=== PATIENT | male | born 1940 | race Caucasian/White ===

== ENCOUNTER → 2019-04-06 | Outpatient (CLI) | payer MEDICARE, OTHER | LOC: LAB.O 11:20 | PROVIDERS: ATTEND Urology | DX: R97.20 Elevated prostate specific antigen [PSA] (principal) ==

== ENCOUNTER → 2020-04-03 | Outpatient (CLI) | payer MEDICARE, OTHER ==
--- NOTE | 2020-04-04 15:26 | MRI ---
EXAM DESCRIPTION: Lumbar Spine w/o Contrast : Magnetic Resonance Imaging. CLINICAL HISTORY: RADICULOPATHY LUMBAR REGION COMPARISON: MRI scan of the pelvis without contrast on the same visit. TECHNIQUE: Multiplanar, multiple standard sequences, non contrast MRI, lumbar spine. FINDINGS: L5-S1: The disc is well visualized on axial T2 series 501, image 3. L5-S1: Moderate endplate reactive changes bilaterally. Moderate disc space loss with disc desiccation. Posterior right paracentral 5 mm disc protrusion with right subarticular recess stenosis, encroaching on the descending right S1 nerve.. Hypertrophic changes in the posterior flavum ligaments and facet joints (canal elements). AP canal diameter 10 mm. Disc osteophyte complex encroaching on the right foramen and the right L5 nerve with stenosis. Similar process at the left foramen with stenosis. L4-L5: Disc desiccation with disc space maintained. Posterior midline 6 mm protrusion impressing the thecal sac. The bilateral subarticular recess narrowing more on the right. Hypertrophic changes in the canal elements. AP canal diameter 5 mm. Borderline left foraminal stenosis and moderate right foraminal narrowing. Schmorl's node inferior L4 endplate. Hyperintense T1 and T2 hemangioma L4 vertebral body. L3-L4: Disc desiccation with disc space maintained. Minimal anterior bulging. Hypertrophic changes in the canal elements. AP canal diameter 11 mm. Bilateral mild to moderate foraminal narrowing. L2-L3: Disc desiccation and minimal anterior endplate reactive changes. Disc space preserved. Hypertrophic changes in the canal elements. AP canal diameter 11 mm. Bilateral mild foraminal narrowing. L1-L2: Disc desiccation. Anterior endplate reactive changes. Anterior disc bulge and spurs to the right of midline. Tiny posterior bulge. Hypertrophic changes in the canal elements. AP canal diameter 10 mm. Bilateral moderate foraminal narrowing. T12-L1: Normal signal in the disc with disc space preserved. No bulging. Hypertrophic changes in the canal elements. Canal patent with mild narrowing of the bilateral foramina. Conus terminates at L1. No scoliosis. Paravertebral soft tissues with minimal muscle atrophy.. Distal cord normal signal and caliber. Inhomogeneous marrow signal in the remaining vertebral bodies and the posterior elements. Vertebral bodies are not compressed at any level. IMPRESSION: 1. Multiple levels of hypertrophic changes in the flavum ligaments and facet joints, minimal endplate spondylosis at several levels with desiccated discs at multiple levels. 2. right posterior protrusion of the L5-S1 disc encroaching on the thecal sac with right subarticular recess stenosis and encroachment on the right S1 nerve. Borderline mild central canal stenosis. Bilateral foraminal stenosis with possible encroachment on the bilateral L5 nerves. 3. Posterior L4-L5 disc midline protrusion with marked hypertrophic changes in the ligaments and facet joints resulting in severe central canal stenosis. Subarticular recess narrowing and possible encroachment on the bilateral descending L5 nerves. 4. Please see above FINDINGS for discussion of results at other disc space levels. Electronically signed by: Candelario Harvey MD 04/04/2020 3:23 PM CDT
== END ==
LOC: MRI 13:00
PROVIDERS: ATTEND Nurse Practitioner Family
DX: M51.15 Intervertebral disc disorders with radiculopathy, thoracolumbar region (principal); M48.07 Spinal stenosis, lumbosacral region; M48.061 Spinal stenosis, lumbar region without neurogenic claudication; M46.96 Unspecified inflammatory spondylopathy, lumbar region; M24.28 Disorder of ligament, vertebrae; R93.7 Abnormal findings on diagnostic imaging of other parts of musculoskeletal system

== ENCOUNTER → 2020-04-04 | Outpatient (CLI) | payer MEDICARE, OTHER ==
--- NOTE | 2020-04-05 16:31 | MRI ---
EXAM DESCRIPTION: Pelvis w/wo Contrast Magnetic Resonance Imaging. CLINICAL HISTORY: ABNORMAL LUMBAR SPINE X-RAY. Sclerotic lesion left iliac bone COMPARISON: Lumbar spine radiographs March 27. MRI scan lumbar spine without contrast April 03. TECHNIQUE: Multiplanar MRI, multiple sequences, without and with Dotarem gadolinium IV contrast, 1 mL per 5 kg body weight. No adverse reactions. FINDINGS: A uniform hypodense lesion is present in the left iliac wing abutting the medial cortex above the level of the superior left SI joint. Hypointense on all sequences without enhancement. This is consistent with a inactive sclerotic bone lesion or bone island. Circumscribed hip lesion anterior lateral aspect of the inferior right humeral head. Disc could represent a herniation. From femoral acetabular impingement. No abnormal joint enhancement. Abnormal marrow edema in the bilateral ischial tuberosities and edema in the origins of the proximal hamstring tendons. The bone marrow and muscle edema is enhancing. This could represent traction injury to the tuberosities and strain of the proximal hamstring tendons. No fluid fluid in the pelvic cul-de-sac. Heterogeneous T2 and T1 signal in the prostate gland and seminal vesicles. Minimal impression of the prostate gland on the base of the urinary bladder. Heterogeneous enhancement of the prostate gland, enlargement of the central zone bilaterally. Heterogeneous enhancement of the peripheral zone with no definitive nonenhancing nodules. No enlarged pelvic lymph nodes or abnormally enhancing lymph nodes or other soft tissue material in the pelvic cavity.. 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 Slightly enlarged prostate gland. No definite focal lesions in the peripheral zone. Bilateral stress injuries of the ischial tuberosities, associated with strain of the bilateral hamstring tendon origins. Electronically signed by: Candelario Harvey MD 04/05/2020 4:29 PM CDT
== END ==
LOC: MRI 13:00
PROVIDERS: ATTEND Nurse Practitioner Family
DX: M89.9 Disorder of bone, unspecified (principal); M54.16 Radiculopathy, lumbar region; S76.302A Unspecified injury of muscle, fascia and tendon of the posterior muscle group at thigh level, left thigh, initial encounter; S76.301A Unspecified injury of muscle, fascia and tendon of the posterior muscle group at thigh level, right thigh, initial encounter; N40.0 Benign prostatic hyperplasia without lower urinary tract symptoms